=== PATIENT | male | born 1980 | race Caucasian/White ===

== ENCOUNTER 2020-12-22 05:22 | Emergency (ER) | payer SELFPAY ==
[2020-12-22 05:24] VITALS: BP 134/87; PULSE 97; RESP 18; TEMP 36.6; O2SAT 96; BMI 21.2
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
--- NOTE | 2020-12-22 06:21 | CT_ITS ---
EXAM: CT MAXILLOFACIAL WITHOUT INTRAVENOUS CONTRAST : 1980 CLINICAL INDICATION: Head injury TECHNIQUE: Helically acquired images were obtained of the face without intravenous contrast. This CT exam was performed using one or more of the following dose reduction techniques: automated exposure control, adjustment of the mA and/or kV according to patient size, and/or use of iterative reconstruction technique. This report was created using [employer] report generation technology. COMPARISON: None. FINDINGS: BONES/JOINTS: Unremarkable. No displaced fracture. No discrete lytic or blastic abnormalities. SOFT TISSUES: Left frontal scalp and maxillary soft tissue swelling. No discrete fluid collections. ORBITS: Unremarkable. Both globes are unremarkable. Extraocular muscles are normal. Retrobulbar fat appears unremarkable. SINUSES: Unremarkable as visualized. Clear. MASTOID AIR CELLS: Unremarkable as visualized. Clear. DENTAL: No acute findings. No periodontal osseous erosion. CT/Sinus/Facial Bone IMPRESSION: Left frontal scalp and maxillary soft tissue swelling. No facial fractures identified. Individualized dose optimization techniques were used for this CT. at 0654 Reported and signed by: Ag Sood MD Electronically Signed: Ag Sood MD at 6:53 EDT Tel , Service support ,
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
[2020-12-22] MEDS: Diphth,Pertuss(Acell),Tet Vac 0.5 ML Vial IM (06:28)
== END 2020-12-22 07:36 | disposition home or self-care (01) ==
PROVIDERS: Emergency Provider Emergency Medicine
DX: S09.90XA Unspecified injury of head, initial encounter (principal); F17.210 Nicotine dependence, cigarettes, uncomplicated; Y04.2XXA Assault by strike against or bumped into by another person, initial encounter; Y93.89 Activity, other specified; Y92.89 Other specified places as the place of occurrence of the external cause; Y99.8 Other external cause status
CPT/HCPCS: 70450; 70486; 90715; 99284